=== PATIENT | male | born 1970 | race Caucasian/White ===

== ENCOUNTER → 2018-02-28 | Outpatient (CLI) | payer OTHER ==
--- NOTE | 2018-02-28 12:07 | RAD ---
HEPATOBILIARY SCAN WITH EJECTION FRACTION 02/28/2018 12:04 PM History: Nausea, vomiting, and abdominal pain x 3 months. Pt given 8oz of Ensure and imaged for 60min to obtain EF Procedure: Serial static images are obtained of the liver and biliary system in the frontal projection following IV administration of 5.5 mCi of Technetium 99m Choletec. After filling of the gallbladder, a fat-containing nutritional supplement was administered orally and imaging of the abdomen continued.. Findings: There is prompt hepatic clearance of tracer from the blood pool. There is homogeneous distribution throughout the liver. Over the observed time frame the gallbladder ejection fraction measures 50 % IMPRESSION: 1. The cystic duct and common bile duct are patent. Negative for acute cholecystitis. 2. The gallbladder ejection fraction appears to be grossly normal Electronically signed by: Leland Shepherd MD (02/28/2018 12:04 PM) [id number]
--- NOTE | 2018-02-28 15:24 | RAD ---
ABDOMEN LTD History: Epigastric abdominal pain for 3 months Comparison: None. Findings: Multiple sonographic images of the abdomen are submitted. Pancreas is not well-visualized due to bowel gas. Inferior vena cava is also not well visualized. Gallbladder is present without intraluminal abnormality, wall thickening, pericholecystic fluid. Hepatic echotexture is within normal limits. Right lobe of the liver measured 17.4 cm longitudinal. Common bile duct is within normal limits within normal limits at 0.4 cm. Right kidney measured 10.9 x 4.5 x 4.5 cm, no hydronephrosis. Impression: 1. No significant abnormality is demonstrated, pancreas and inferior vena cava not well-visualized due to bowel gas. Electronically signed by: Rikki Mayers MD (02/28/2018 3:21 PM) [id number]
== END | disposition home or self-care (01) ==
LOC: US 06:19
PROVIDERS: ATTEND Internal Medicine Gastroenterology
DX: R10.13 Epigastric pain (principal)
CPT/HCPCS: 76705; 78226; 96374; 96375; A9537